=== PATIENT | male | born 1945 | race Caucasian/White ===

== ENCOUNTER 2020-08-19 11:05 | Inpatient (IN) ==
[2020-08-19] MEDS ORDERED: 0.9 % Sodium Chloride 1,000 ML IVC ONE ×3 (11:30→12:53)
[2020-08-19] MEDS ORDERED: Isovue-370 500 ML BOTTLE IVP ONE (11:30)
[2020-08-19] MEDS ORDERED: Ondansetron 4 MG/2 ML VIAL IVP ONE (11:30)
[2020-08-19 11:34] LABS: Basophils # 0.1 K/mcL (0.0-0.2); Basophils % 0.5 %; Eosinophils # 0.1 K/mcL (0.0-0.6); Hematocrit 42.3 % (37.5-50.1); Hemoglobin 13.8 g/dL (12.9-16.9); Immature Granulocytes % 0.3 % (0-4); Lymphocytes # 1.4 K/mcL (0.6-4.6); Mean Corpuscular HGB Conc 32.6 g/dL (31.6-35.5); Mean Corpuscular Hemoglobin 28.3 pg (28.0-33.3); Mean Corpuscular Volume 86.9 fL (83.0-100.0); Mean Platelet Volume 11.5 fL (9.4-12.4); Monocytes % 9.5 %; Neutrophils # 7.7 K/mcL (1.6-8.9); Platelet Count 357 K/mcL (140-400); Red Blood Count 4.87 M/mcL (4.19-5.50); Red Cell Distribution Width 13.1 % (11.5-14.5); Segmented Neutrophils % 74.7 %; White Blood Count 10.3 K/mcL (4.3-11.1)
[2020-08-19 11:41] LABS: INR 1.4; Prothrombin Time 15.7 Seconds (9.4-12.1)
[2020-08-19 11:44] LABS: Activated Partial Thrombo Time 28.4 Seconds (26.0-36.0)
[2020-08-19 11:55] LABS: BUN/Creatinine Ratio 14 (6-26); Blood Urea Nitrogen 24 mg/dL (8-23); Calcium 9.4 mg/dL (8.6-10.3); Carbon Dioxide 23 mEq/L (23-29); Chloride 100 mEq/L (98-107); Glucose 153 mg/dL (70-105); Osmolality,Calculated 285 (280-300); Sodium 134 mEq/L (136-145); Troponin I < 0.03 ng/mL (< 0.04); eGFR For African Americans 48 (> 60); eGFR For Non-African Americans 40 (> 60)
[2020-08-19] MEDS ORDERED: Piperacillin/Tazobactam 3.375 GM in 0.9 % Sodium Chloride Mini Bag 100 ML IVPB ONE (13:25)
[2020-08-19] MEDS ORDERED: Vancomycin 1,500 MG/265 ML IV.SOLN IVPB ONE (13:25)
[2020-08-19] MEDS ORDERED: Ondansetron 4 MG/2 ML VIAL IVP PRN (15:12)
[2020-08-19] MEDS ORDERED: Acetaminophen 325 MG TABLET PO PRN (15:12)
[2020-08-19] MEDS ORDERED: Ketorolac 30 MG/ML VIAL IVP PRN (15:12)
[2020-08-19] MEDS ORDERED: Naloxone 0.4 MG/ML INJ IVP PRN (15:12)
[2020-08-19] MEDS ORDERED: Perflutren Lipid Microsphere 1.3 ML in 0.9 % Sodium Chloride 8.7 ML IVP PRN (15:52)
[2020-08-19 15:55] LABS: Chol/HDL Ratio 3.2 (0-4.9); Cholesterol 81 mg/dL (< 200); HDL Cholesterol 25 mg/dL (40-59); LDL Cholesterol,Calculated 39 mg/dL (< 100); Triglycerides 86 mg/dL (< 150)
[2020-08-19 16:22] LABS: Procalcitonin 0.17 ng/mL (0.00-0.15)
[2020-08-19] MEDS ORDERED: Ipratropium/Albuterol Neb 3 ML IH PRN (16:22)
[2020-08-19 16:23] LABS: Prostate Specific Antigen 17.02 ng/mL (Less than 4.00)
[2020-08-19] MEDS ORDERED: *HR* Dextrose 50 % in Water (Vial) 50 ML VIAL IVP PRN (16:54)
[2020-08-19] MEDS ORDERED: D5% in Water 1,000 ML IVC PRN (16:54)
[2020-08-19] MEDS ORDERED: Dextrose Gel 15 GM/37.5 ML TUBE PO PRN ×2 (16:54)
[2020-08-19] MEDS: Acetaminophen IV 1,000 MG/100 ML BAG IVPB SCH (17:08)
[2020-08-19 17:11] LABS: Albumin 3.3 g/dL (3.5-5.7); Albumin/Globulin Ratio 1.1 (1.1-2.2); Bilirubin,Direct 0.3 mg/dL (0.0-0.2); Bilirubin,Indirect 0.7 mg/dL (0.0-1.0); Globulin 3.1 g/dL (2.4-3.5); Total Protein 6.4 g/dL (6.4-8.9)
[2020-08-19 17:22] LABS: Hematocrit 39.2 % (37.5-50.1); Hemoglobin 12.5 g/dL (12.9-16.9)
[2020-08-19 17:30] LABS: Estimated Average Glucose 120 mg/dl; Hemoglobin A1C 5.8 %
[2020-08-19] MEDS ORDERED: *HR* Heparin 5,000 UNIT/ML VIAL SQ SCH (18:00)
[2020-08-19 19:02] LABS: ABG Base Excess -1 mEq/L (-2 to 3); ABG HCO3 23 mEq/L (21-27); ABG Oxygen Saturation 96 % (95-98); ABG PCO2 34 mmHg (35-45); ABG PH 7.44 pH Units (7.32-7.45); ABG PO2 75 mmHg (85-104); ABG TCO2 24 mEq/L (20-26)
[2020-08-19] MEDS: Piperacillin/Tazobactam 3.375 GM in 0.9 % Sodium Chloride Mini Bag 100 ML IVPB SCH (20:45)
[2020-08-19] MEDS ORDERED: NON-FORMULARY MEDICATION 1 EACH EACH (Atorvastatin Calcium [Lipitor] 40 MG) PO SCH (21:00)
[2020-08-19 22:51] LABS: Adenovirus Not Detected (Not Detect); Bordetella Pertussis Not Detected (Not Detect); Coronavirus 229E Not Detected (Not Detect); Coronavirus HKU1 Not Detected (Not Detect); Coronavirus NL63 Not Detected (Not Detect); Coronavirus OC43 Not Detected (Not Detect); Human Metapneumovirus Not Detected (Not Detect); Human Rhinovirus/Enterovirus Not Detected (Not Detect); Influenza A Subtype 2009 H1 Not Detected (Not Detect); Influenza B Not Detected (Not Detect); Parainfluenza Virus 1 Not Detected (Not Detect); Parainfluenza Virus 2 Not Detected (Not Detect); Parainfluenza Virus 3 Not Detected (Not Detect); Parainfluenza Virus 4 Not Detected (Not Detect); Respiratory Syncytial Virus Not Detected (Not Detect); SARS-CoV-2 Not Detected (Not Detect)
[2020-08-19 22:52] LABS: Chlamydophila pneumoniae Not Detected (Not Detect); Mycoplasma pneumoniae Not Detected (Not Detect)
[2020-08-19 23:48] LABS: Bilirubin,Urine Negative (Negative); Blood,Urine Negative (Negative); Clarity,Urine Clear (Clear); Color,Urine Yellow (Yellow); Glucose,Urine (UA) Normal (Normal); Ketones,Urine Negative (Negative); Leukocyte Esterase,Urine Negative (Negative); Mucus,Urine Few per lpf (None-Few); Nitrite,Urine Negative (Negative); Protein,Urine 50 mg/dL (Neg-Trace); Specific Gravity,Urine > 1.030 (1.010-1.025); Squamous Epithelial Cell,Urine Few per hpf (None-Few); Urobilinogen,Urine Normal (Normal); WBC,Urine 0-3 per hpf (0-3)
[2020-08-20] MEDS: Acetaminophen IV 1,000 MG/100 ML BAG IVPB SCH ×2 (00:06→07:27)
[2020-08-20 03:27] LABS: Basophils % 0.6 %; Eosinophils # 0.1 K/mcL (0.0-0.6); Eosinophils % 1.5 %; Hemoglobin 11.6 g/dL (12.9-16.9); Immature Granulocytes % 0.4 % (0-4); Lymphocytes # 1.5 K/mcL (0.6-4.6); Lymphocytes % 20.6 %; Mean Corpuscular HGB Conc 33.1 g/dL (31.6-35.5); Mean Corpuscular Hemoglobin 28.8 pg (28.0-33.3); Mean Corpuscular Volume 86.8 fL (83.0-100.0); Mean Platelet Volume 11.5 fL (9.4-12.4); Monocytes # 0.8 K/mcL (0.0-1.3); Monocytes % 11.5 %; Neutrophils # 4.7 K/mcL (1.6-8.9); Platelet Count 294 K/mcL (140-400); Red Blood Count 4.03 M/mcL (4.19-5.50); Red Cell Distribution Width 13.2 % (11.5-14.5); Segmented Neutrophils % 65.4 %; White Blood Count 7.2 K/mcL (4.3-11.1)
[2020-08-20 03:45] LABS: Albumin/Globulin Ratio 1.1 (1.1-2.2); Bilirubin,Total 1.2 mg/dL (0.3-1.0); Calcium 8.7 mg/dL (8.6-10.3); Globulin 2.8 g/dL (2.4-3.5); Magnesium 1.9 mg/dL (1.6-2.6); Phosphorous 4.1 mg/dL (2.7-4.5); Potassium 4.3 mEq/L (3.5-5.1); Total Protein 5.8 g/dL (6.4-8.9)
[2020-08-20] MEDS: Piperacillin/Tazobactam 3.375 GM in 0.9 % Sodium Chloride Mini Bag 100 ML IVPB SCH ×3 (05:04→20:12)
[2020-08-20] MEDS: Fluticasone Propionate Nasal 50 MCG/SPRAY BOTTLE NS SCH (07:27)
[2020-08-20] MEDS: Pantoprazole 40 MG VIAL IVP SCH (07:27)
[2020-08-20] MEDS ORDERED: Cholecalciferol (D-3) 1,000 UNIT (25MCG) TABLET PO SCH (09:00)
[2020-08-20] MEDS ORDERED: NON-FORMULARY MEDICATION 1 EACH EACH (Mirabegron [Myrbetriq] 50 MG) PO SCH (09:00)
[2020-08-20] MEDS ORDERED: Finasteride 5 MG TABLET PO SCH (11:13)
[2020-08-20] MEDS: Vancomycin 1,750 MG/517.5 ML IV.SOLN IVPB SCH (11:39)
[2020-08-20] MEDS ORDERED: Isovue-370 500 ML BOTTLE IVP ONE (16:02)
[2020-08-20] MEDS ORDERED: 0.9 % Sodium Chloride 1,000 ML IVC SCH (16:15)
[2020-08-20 17:14] LABS: Sodium, Urine 73.1 mEq/L
[2020-08-20] MEDS: Acetaminophen 325 MG TABLET PO PRN (20:12)
[2020-08-21 04:32] LABS: Hematocrit 36.6 % (37.5-50.1); Hemoglobin 11.9 g/dL (12.9-16.9); Mean Corpuscular HGB Conc 32.5 g/dL (31.6-35.5); Mean Corpuscular Hemoglobin 27.7 pg (28.0-33.3); Mean Corpuscular Volume 85.3 fL (83.0-100.0); Platelet Count 299 K/mcL (140-400); Red Blood Count 4.29 M/mcL (4.19-5.50); Red Cell Distribution Width 13.1 % (11.5-14.5); White Blood Count 8.7 K/mcL (4.3-11.1)
[2020-08-21 04:51] LABS: BUN/Creatinine Ratio 16 (6-26); Blood Urea Nitrogen 20 mg/dL (8-23); Calcium 8.8 mg/dL (8.6-10.3); Carbon Dioxide 23 mEq/L (23-29); Chloride 106 mEq/L (98-107); Glucose 106 mg/dL (70-105); Magnesium 1.9 mg/dL (1.6-2.6); Osmolality,Calculated 289 (280-300); Phosphorous 3.3 mg/dL (2.7-4.5); Sodium 138 mEq/L (136-145); eGFR For African Americans > 60 (> 60); eGFR For Non-African Americans 58 (> 60)
[2020-08-21 04:52] LABS: % Iron Saturation 10 % (20-55); Iron 18 mcg/dL (65-175); Transferrin 124 mg/dL (203-362)
[2020-08-21 05:10] LABS: Ferritin 484 ng/mL (20-250)
[2020-08-21 05:16] LABS: Folate 9.2 ng/mL (3.0-16.0)
[2020-08-21] MEDS: Piperacillin/Tazobactam 3.375 GM in 0.9 % Sodium Chloride Mini Bag 100 ML IVPB SCH ×2 (05:34→15:28)
[2020-08-21] MEDS: Acetaminophen 325 MG TABLET PO PRN (07:05)
[2020-08-21] MEDS: Pantoprazole 40 MG VIAL IVP SCH (07:06)
[2020-08-21] MEDS: Fluticasone Propionate Nasal 50 MCG/SPRAY BOTTLE NS SCH (07:06)
[2020-08-21] MEDS: Vancomycin 1,750 MG/517.5 ML IV.SOLN IVPB SCH (12:08)
[2020-08-21] MEDS ORDERED: Vancomycin 2,000 MG/520 ML IV.SOLN IVPB SCH (13:00)
[2020-08-21] MEDS ORDERED: Ondansetron 4 MG/2 ML VIAL ONE (18:21)
[2020-08-21] MEDS ORDERED: Lidocaine -MPF 4% 5 ML AMPUL ONE (18:21)
[2020-08-21] MEDS ORDERED: *HR* Propofol 200 MG/20 ML VIAL IVP ONE ×2 (18:21→18:43)
[2020-08-21] MEDS ORDERED: *HR* FentaNYL (PF) 100 MCG/2 ML VIAL ONE (18:21)
[2020-08-21] MEDS ORDERED: *HR* Succinylcholine 200 MG/10 ML VIAL IVP ONE (18:21)
[2020-08-21] MEDS ORDERED: *HR* Rocuronium Bromide 50 MG/5 ML VIAL ONE (18:21)
[2020-08-21] MEDS ORDERED: Lidocaine -MPF 2% 2 ML VIAL ONE (18:22)
[2020-08-21] MEDS ORDERED: Famotidine 20 MG/2 ML VIAL ONE (18:26)
[2020-08-21] MEDS ORDERED: Acetaminophen IV 1,000 MG/100 ML BAG IVPB ONE (18:29)
[2020-08-21] MEDS ORDERED: *HR* Metoprolol 5 MG/5 ML VIAL IVP ONE (19:17)
[2020-08-21] MEDS ORDERED: *HR* HYDROmorphone PF 0.5 MG/0.5 ML SYRINGE IVP PRN (20:18)
[2020-08-21] MEDS ORDERED: *HR* OxyCODONE Immed Rel 5 MG TABLET PO PRN ×2 (20:18→21:20)
[2020-08-21] MEDS ORDERED: Ondansetron 4 MG/2 ML VIAL IVP PRN ×3 (20:18→21:20)
[2020-08-21] MEDS ORDERED: Dextrose Gel 15 GM/37.5 ML TUBE PO PRN ×2 (21:20)
[2020-08-21] MEDS ORDERED: D5% in Water 1,000 ML IVC PRN (21:20)
[2020-08-21] MEDS ORDERED: Ipratropium/Albuterol Neb 3 ML IH PRN (21:20)
[2020-08-21] MEDS ORDERED: Perflutren Lipid Microsphere 1.3 ML in 0.9 % Sodium Chloride 8.7 ML IVP PRN (21:20)
[2020-08-21] MEDS ORDERED: *HR* Dextrose 50 % in Water (Vial) 50 ML VIAL IVP PRN (21:20)
[2020-08-21] MEDS ORDERED: Naloxone 0.4 MG/ML INJ IVP PRN (21:20)
[2020-08-21] MEDS ORDERED: Acetaminophen 325 MG TABLET PO PRN (21:20)
[2020-08-22] MEDS ORDERED: Piperacillin/Tazobactam 3.375 GM in 0.9 % Sodium Chloride Mini Bag 100 ML IVPB SCH (05:00)
[2020-08-22 05:35] LABS: Hematocrit 38.4 % (37.5-50.1); Hemoglobin 12.4 g/dL (12.9-16.9); Mean Corpuscular HGB Conc 32.3 g/dL (31.6-35.5); Mean Corpuscular Hemoglobin 28.1 pg (28.0-33.3); Mean Corpuscular Volume 87.1 fL (83.0-100.0); Mean Platelet Volume 11.6 fL (9.4-12.4); Platelet Count 344 K/mcL (140-400); Red Blood Count 4.41 M/mcL (4.19-5.50); Red Cell Distribution Width 13.1 % (11.5-14.5); White Blood Count 8.1 K/mcL (4.3-11.1)
[2020-08-22 05:37] LABS: Basophils % 0.3 %; Hematocrit 38.7 % (37.5-50.1); Hemoglobin 12.4 g/dL (12.9-16.9); Immature Granulocytes % 0.4 % (0-4); Lymphocytes # 0.8 K/mcL (0.6-4.6); Lymphocytes % 9.9 %; Mean Corpuscular Hemoglobin 27.9 pg (28.0-33.3); Mean Platelet Volume 11.6 fL (9.4-12.4); Monocytes # 0.2 K/mcL (0.0-1.3); Monocytes % 2.8 %; Neutrophils # 6.6 K/mcL (1.6-8.9); Platelet Count 341 K/mcL (140-400); Red Blood Count 4.45 M/mcL (4.19-5.50); Red Cell Distribution Width 13.2 % (11.5-14.5); Segmented Neutrophils % 86.6 %; White Blood Count 7.6 K/mcL (4.3-11.1)
[2020-08-22 05:55] LABS: BUN/Creatinine Ratio 20 (6-26); Blood Urea Nitrogen 25 mg/dL (8-23); Calcium 9.2 mg/dL (8.6-10.3); Carbon Dioxide 21 mEq/L (23-29); Chloride 107 mEq/L (98-107); Glucose 181 mg/dL (70-105); Osmolality,Calculated 295 (280-300); Phosphorous 3.4 mg/dL (2.7-4.5); Potassium 3.9 mEq/L (3.5-5.1); Sodium 138 mEq/L (136-145); eGFR For African Americans > 60 (> 60); eGFR For Non-African Americans 57 (> 60)
[2020-08-22] MEDS ORDERED: Iron Sucrose Complex 400 MG in 0.9 % Sodium Chloride 250 ML IVPB ONE (08:08)
[2020-08-22] MEDS ORDERED: Fluticasone Propionate Nasal 50 MCG/SPRAY BOTTLE NS SCH (09:00)
[2020-08-22] MEDS ORDERED: Pantoprazole 40 MG VIAL IVP SCH (09:00)
[2020-08-22 12:07] VITALS: BP 114/68
[2020-08-22] MEDS ORDERED: Vancomycin 2,000 MG/520 ML IV.SOLN IVPB SCH (13:00)
[2020-08-22] MEDS ORDERED: Doxycycline 100 MG in 0.9 % Sodium Chloride Mini Bag 100 ML IVPB SCH (18:00)
== END 2020-08-22 13:06 | disposition home or self-care (01) | DRG 374 ==
LOC: EMEROOARM 11:05 → 2ANU 11:05 → SUATTDRO 14:39 → 2ANU 15:35
PROVIDERS: ADMIT Internal Medicine; ATTEND Student in an Organized Health Care Education/Training Program

== ENCOUNTER 2020-08-30 15:08 | Observation (INO) ==
[2020-08-30] MEDS ORDERED: Isovue-370 500 ML BOTTLE IVP ONE (16:15)
[2020-08-30] MEDS ORDERED: 0.9 % Sodium Chloride 500 ML IVC ONE ×2 (16:49→18:03)
[2020-08-30 17:10] LABS: Basophils # 0.1 K/mcL (0.0-0.2); Basophils % 0.3 %; Eosinophils % 0.3 %; Hematocrit 40.2 % (37.5-50.1); Hemoglobin 13.1 g/dL (12.9-16.9); Immature Granulocytes % 1.2 % (0-4); Lymphocytes # 1.4 K/mcL (0.6-4.6); Mean Corpuscular HGB Conc 32.6 g/dL (31.6-35.5); Mean Corpuscular Hemoglobin 27.4 pg (28.0-33.3); Mean Corpuscular Volume 84.1 fL (83.0-100.0); Mean Platelet Volume 11.9 fL (9.4-12.4); Monocytes # 1.1 K/mcL (0.0-1.3); Monocytes % 6.8 %; Neutrophils # 12.8 K/mcL (1.6-8.9); Platelet Count 394 K/mcL (140-400); Red Blood Count 4.78 M/mcL (4.19-5.50); Segmented Neutrophils % 82.4 %; White Blood Count 15.5 K/mcL (4.3-11.1)
[2020-08-30 17:12] LABS: INR 1.4; Prothrombin Time 16.5 Seconds (9.4-12.1)
[2020-08-30 17:23] LABS: Bilirubin,Urine Negative (Negative); Blood,Urine Negative (Negative); Calcium Oxalate Crystals,Urine Present; Clarity,Urine Turbid (Clear); Color,Urine Yellow (Yellow); Glucose,Urine (UA) Normal (Normal); Hyaline Casts,Urine Many per lpf (None Seen); Ketones,Urine Trace mg/dL (Negative); Leukocyte Esterase,Urine Small (Negative); Mucus,Urine Many per lpf (None-Few); Nitrite,Urine Negative (Negative); Protein,Urine 100 mg/dL (Neg-Trace); RBC,Urine 50-100 per hpf (0-3); Specific Gravity,Urine > 1.030 (1.010-1.025); Squamous Epithelial Cell,Urine Few per hpf (None-Few); WBC,Urine 30-50 per hpf (0-3)
[2020-08-30 17:28] LABS: Alanine Aminotransferase 36 Units/L (7-52); Albumin 2.9 g/dL (3.5-5.7); Alkaline Phosphatase 78 Units/L (34-104); Aspartate Amino Transferase 49 Units/L (13-39); BUN/Creatinine Ratio 29 (6-26); Bilirubin,Direct 0.5 mg/dL (0.0-0.2); Bilirubin,Indirect 0.9 mg/dL (0.0-1.0); Bilirubin,Total 1.4 mg/dL (0.3-1.0); Blood Urea Nitrogen 39 mg/dL (8-23); Carbon Dioxide 20 mEq/L (23-29); Chloride 102 mEq/L (98-107); Glucose 114 mg/dL (70-105); Osmolality,Calculated 290 (280-300); Potassium 3.9 mEq/L (3.5-5.1); Sodium 135 mEq/L (136-145); Total Protein 5.9 g/dL (6.4-8.9); Troponin I < 0.03 ng/mL (< 0.04); eGFR For African Americans > 60 (> 60); eGFR For Non-African Americans 51 (> 60)
[2020-08-30] MEDS ORDERED: Vancomycin 1,500 MG/265 ML IV.SOLN IVPB ONE (17:59)
[2020-08-30] MEDS ORDERED: Piperacillin/Tazobactam 3.375 GM in 0.9 % Sodium Chloride Mini Bag 100 ML IVPB ONE (17:59)
[2020-08-30] MEDS ORDERED: 0.9 % Sodium Chloride 1,000 ML IVC ONE (18:03)
[2020-08-30] MEDS ORDERED: Vancomycin 2,000 MG/520 ML IV.SOLN IVPB ONE (18:04)
[2020-08-30] MEDS ORDERED: Acetaminophen 325 MG TABLET PO PRN (21:47)
[2020-08-30] MEDS ORDERED: Ondansetron 4 MG/2 ML VIAL IVP PRN (21:47)
[2020-08-30] MEDS ORDERED: Piperacillin/Tazobactam 3.375 GM in Water for inj. (sterile) 20 ML IVP STA (22:15)
[2020-08-31] MEDS: Piperacillin/Tazobactam 3.375 GM in 0.9 % Sodium Chloride Mini Bag 100 ML IVPB SCH ×2 (00:21→08:20)
[2020-08-31] MEDS: predniSONE 20 MG TABLET PO SCH ×2 (01:14→08:22)
[2020-08-31] MEDS: *HR* Heparin 5,000 UNIT/ML VIAL SQ SCH ×2 (05:39→14:30)
[2020-08-31 06:26] LABS: Hematocrit 40.2 % (37.5-50.1); Mean Corpuscular HGB Conc 32.3 g/dL (31.6-35.5); Mean Corpuscular Hemoglobin 27.7 pg (28.0-33.3); Mean Corpuscular Volume 85.7 fL (83.0-100.0); Mean Platelet Volume 11.9 fL (9.4-12.4); Platelet Count 413 K/mcL (140-400); Red Blood Count 4.69 M/mcL (4.19-5.50); Red Cell Distribution Width 14.2 % (11.5-14.5); White Blood Count 16.7 K/mcL (4.3-11.1)
[2020-08-31 06:32] LABS: Potassium 3.9 mEq/L (3.5-5.1)
[2020-08-31] MEDS ORDERED: Ringers Solution, Lactated 1,000 ML IVC ONE (06:38)
[2020-08-31] MEDS ORDERED: Vancomycin 2,000 MG/520 ML IV.SOLN IVPB SCH (08:00)
[2020-08-31 11:20] VITALS: BP 117/75
[2020-08-31] MEDS ORDERED: *HR* Metoprolol 5 MG/5 ML VIAL IVP STA (14:24)
[2020-08-31] MEDS ORDERED: 0.9 % Sodium Chloride 1,000 ML IVC SCH (15:15)
== END 2020-08-31 16:34 | disposition short-term general hospital (02) ==
LOC: 2ANU 15:08 → EMEROOARM 15:08 → 2ANU 23:30
PROVIDERS: ADMIT Family Medicine; ATTEND Family Medicine